=== PATIENT | male | born 1985 | race African-American/Black ===

== ENCOUNTER 2021-09-02 14:24 | Emergency (ER) | payer OTHER ==
[~2021-09-02] VITALS: Ht 160 cm; Wt 73.5 kg
[2021-09-02 14:42] VITALS: TEMP 98.1
[2021-09-02 20:10] VITALS: BP 120/87
== END 2021-09-02 20:10 | disposition home or self-care (01) ==
LOC: ED 14:24
PROC: 2W3RX1Z Immobilization of Left Lower Leg using Splint (ICD-10-PCS; principal; 2021-09-02)
DX: S82.65XA Nondisplaced fracture of lateral malleolus of left fibula, initial encounter for closed fracture (principal); W01.0XXA Fall on same level from slipping, tripping and stumbling without subsequent striking against object, initial encounter; Y92.89 Other specified places as the place of occurrence of the external cause
CPT/HCPCS: 96372; 99283; J1885; J2550